=== PATIENT | male | born 1980 | race Caucasian/White ===

== ENCOUNTER 2017-09-14 11:52 | Emergency (ER) | payer SELFPAY ==
[2017-09-14 11:52] VITALS: BP 149/104; PULSE 114; RESP 16; TEMP 36.7; O2SAT 99; BMI 37.4
--- NOTE | 2017-09-14 12:24 | CT_ITS ---
STUDY: CT ABDOMEN AND PELVIS WITH CONTRAST REASON FOR EXAM: Male, 37 years old. Postprandial abdominal pain for one week. RADIATION DOSAGE (If Supplied By Facility): CTDIvol = ( 16.46 ) mGy, DLP = ( 1283.60 ) mGycm TECHNIQUE: Transaxial images were obtained from the dome of the diaphragm to the symphysis pubis without oral contrast. 100CC ml of Isovue 300 contrast was administered. Sagittal and coronal images were reconstructed. Individualized dose optimization techniques were used for this CT. COMPARISON: None. FINDINGS: The visualized lung bases are unremarkable. The visualized portions of the heart are within normal limits. There is decreased attenuation of the liver consistent with steatosis. Normal gallbladder and extrahepatic biliary system. Normal spleen. Normal pancreas. Normal bilateral adrenal glands. Normal right kidney. Normal left kidney. Normal visualized stomach. Normal small intestine. Normal colon. The appendix is visualized and appears normal. Normal abdominal aorta. Normal inferior vena cava. Normal retroperitoneum. Normal urinary bladder. Normal abdominal wall. Minimal anterior listhesis of L5 on S1 with spondylolysis of the pars interarticularis of the L5 vertebrae. CT/Abdomen/Pelvis W IV Cont ONLY IMPRESSION: Fatty infiltration of the liver. Electronically Signed: Jesus Joyner MD at 14:21 EDT Tel [phone], Service support ,
--- NOTE | 2017-09-14 12:24 | EKG12_ITS ---
Test Reason : AB PAIN Blood Pressure : / mmHG Vent. Rate : 102 BPM Atrial Rate : 102 BPM P-R Int : 150 ms QRS Dur : 088 ms QT Int : 346 ms P-R-T Axes : 037 -19 039 degrees QTc Int : 450 ms Sinus tachycardia Otherwise normal ECG Confirmed by CHASTITY SARAVIA, FRANKLYN ([id number]), editor city [place]UMONT ([id number]) on 09/18/2017 8:25:29 AM Referred By: [place] Confirmed By:FRANKLYN HAYWOOD MD
--- NOTE | 2017-09-14 12:32 | ED.DCSUM_ITS ---
- ER Visit Summary Date of Service: 09/14/17 Chief Complaint: Abdominal pain History of Present Illness: The patient is a 37 M with epigastric pain. Symptoms started about a week ago. They are intermittent, and can last for minutes to hours at a time. It seems to be worse with food. He has occasional mid back pain with this. He also reports lightheadedness with the pain. He has not passed out. Denies any vertigo. Denies any other symptoms. Denies any weakness or numbness in his legs. Denies any history of surgery. Physical Examination: Tachycardic but otherwise vitals unremarkable. Afebrile. Patient appears uncomfortable but not toxic or in distress. Abdomen is mildly tender in the epigastric region. No guarding or rebound. Normal bowel sounds. No masses. Heart and lungs unremarkable. Back unremarkable. Pulses strong and equal. Skin appears normal. Test Results: Laboratory studies pending. We will also check imaging. Emergency Department Course and Treatment: Patient declined pain meds. Will treat with a fluid bolus. Hgb 17.2. CMP normal. Lipase normal. Troponin normal. EKG showed sinus rhythm at a rate of 102. No sign of ischemia or infarction. CT abdomen showed a fatty liver but no other abnormalities. I am not sure what is causing the patient's pain. His workup is unremarkable. I believe he is appropriate for further outpatient follow-up. Will start him on antacid medication. He is also concerned about his lightheadedness. He has a history of vertigo, but he denies any vertigo this time. It seems like his dizziness is worse with his pain. I advised him to stay hydrated. Monitor for any new or worsening symptoms. He would like to follow-up as an outpatient for this. If he has trouble following up or has any new or worsening symptoms, he should return for reevaluation. Treatment Plan: As above Disposition: Discharged Impression: 1. Abdominal pain, epigastric 2. Lightheadedness This note was generated with [employer]cam dictation software. It may contain incorrect words, spelling, and punctuation that were not noted in review of the chart prior to signing ED Disposition - Plan for ED Patient: Chief Complaint: Abd Pain Referrals: Care Physician,No Primary [Primary Care Provider] -
[2017-09-14] MEDS: 0.9% Normal Saline 1,000 ML 1000 ML IV (12:36)
[2017-09-14 12:54] LABS: Absolute Lymphocyte Count 1.03 X10^3/ul (0.83-4.51); Absolute Neutrophil Count 4.1 X10^3/uL (2.0-7.7); Basophil# 0.03 X10^3/uL; Basophil% 0.5 % (0-1); Eosinophil# 0.15 X10^3/uL; Eosinophils% 2.6 % (0-5); Hematocrit 51.4 % (40-54); Hemoglobin 17.2 g/dl (13.0-16.5); Lymphocyte # 1.03 X10^3/ul (4.0); Lymphocyte % 17.7 % (19-41); Mean Corp Hgb Conc 33.5 g/gl (32-36); Mean Corpuscular Hgb 29.2 pg (27.0-32.0); Mean Corpuscular Volume 87.3 fL (80-94); Mean Platelet Vol. 9.8 fl (6.2-12.0); Monocyte# 0.48 X10^3/uL; Monocyte% 8.2 % (0-10); Neutrophil % 70.5 % (47-70); Platelet Count 246 K/mm3 (150-450); RBC Distribution Width CV 13.8 % (11.6-14.6); RBC Distribution Width SD 43.9 fl (35.1-43.9); Red Blood Count 5.89 M/mm3 (4.6-6.2); White Blood Count 5.8 K/mm3 (4.4-11.0)
[2017-09-14 12:55] LABS: POSITIVE COUNT NO; POSITIVE DIFFERENTIAL NO; POSITIVE MORPHOLOGY NO
[2017-09-14 13:16] LABS: AST(SGOT) 27 U/L (15-37); Alanine Aminotransfer ALT/SGPT 56 U/L (16-61); Albumin, Serum 4.2 g/dL (3.2-5.0); Alkaline Phosphatase 50 U/L (45-117); Anion Gap 9 (5-15); BUN 7 mg/dL (7-18); BUN/Creat Ratio 5.9 RATIO (10-20); Calcium,Total 9.4 mg/dL (8.5-10.1); Chloride 107 mmol/L (98-107); Creatinine, Serum 1.19 mg/dL (0.70-1.30); EST Glomerular Filtration Rate 72 mL/min (>60); Est Glom Filt Rate - Afr Amer 88 mL/min (>60); Estimated Creatinine Clearance 77.92 ml/min; Globulin 4.4 g/dL (2.2-4.2); Glucose 92 mg/dL (74-106); Lipase 114 U/L (73-393); Potassium 4.2 mmol/L (3.5-5.1); Protein, Total 8.6 g/dL (6.4-8.2); Sodium Level 143 mmol/L (136-145)
--- NOTE | 2017-09-14 15:03 | ED.DEP ---
ED Disposition - Plan for ED Patient: Chief Complaint: Abd Pain Instructions: ED Abdominal Pain Unkn Cause Male Prescriptions: Omeprazole [Prilosec] 20 mg PO DAILY #30 cap Referrals: Brenden Granda DO [STAFF PHYSICIAN] -
[2017-09-14 15:15] VITALS: BP 137/88; PULSE 81; RESP 16; O2SAT 98
== END 2017-09-14 15:26 | disposition home or self-care (01) ==
PROVIDERS: Emergency Provider Emergency Medicine
DX: R10.13 Epigastric pain (principal); R42 Dizziness and giddiness; M54.9 Dorsalgia, unspecified; R19.7 Diarrhea, unspecified; K76.0 Fatty (change of) liver, not elsewhere classified; Z72.0 Tobacco use
CPT/HCPCS: 74177; 80053; 83690; 84484; 85025; 93005; 96360; 99283; J7030; Q9967; A4216

== ENCOUNTER 2017-09-15 10:10 | Emergency (ER) | payer SELFPAY ==
--- NOTE | 2017-09-15 10:00 | EKG12_ITS ---
Test Reason : CP Blood Pressure : / mmHG Vent. Rate : 083 BPM Atrial Rate : 083 BPM P-R Int : 138 ms QRS Dur : 088 ms QT Int : 358 ms P-R-T Axes : 028 -26 048 degrees QTc Int : 420 ms Normal sinus rhythm with sinus arrhythmia Normal ECG Confirmed by CHASTITY SARAVIA, FRANKLYN ([id number]), acquisitions editor TITO DUMONT ([id number]) on 09/18/2017 8:44:00 AM Referred By: MEHDI Confirmed By:FRANKLYN HAYWOOD MD
[2017-09-15 10:11] VITALS: BP 167/101; PULSE 92; RESP 16; TEMP 36.8; O2SAT 99; BMI 37.4
[2017-09-15 10:17] VITALS: BP 141/99; PULSE 99; RESP 15; O2SAT 99
--- NOTE | 2017-09-15 10:30 | CT_ITS ---
STUDY: CTA CHEST REASON FOR EXAM: Male, 37 years old. Chest pain. RADIATION DOSAGE (If Supplied By Facility): CTDIvol = ( 15.06 ) mGy, DLP = ( 711.73 ) mGycm TECHNIQUE: The examination was performed with the intravenous administration of 100 ml of Isovue 370 contrast material. Post-processing of the angiographic images was performed, with multiplanar reformation and 3D reconstruction. Individualized dose optimization techniques were used for this CT. COMPARISON: None. FINDINGS: Cardiac monitoring leads are present. Normal enhancement of the main pulmonary artery and right and left pulmonary arteries. There is limited enhancement of the bilateral peripheral pulmonary arteries. There is no demonstrated pulmonary embolism. Normal thoracic aorta and visualized great vessels. There is no demonstrated aortic dissection. Normal heart and pericardium. There is no demonstrated mediastinal lymphadenopathy or mediastinal mass lesion. Normal hilar regions. Normal visualized trachea and bronchi. The lungs are well expanded. Normal pulmonary parenchyma. Normal pleura. Normal chest wall structures. Normal osseous structures. Normal visualized upper abdomen. CT/CTA Chest W/WO Contrast IMPRESSION: No CTA demonstrated pulmonary embolism or arterial dissection. Electronically Signed: Britta Roberts MD at 11:43 EDT , Service support ,
[2017-09-15 10:34] LABS: Absolute Lymphocyte Count 1.09 X10^3/ul (0.83-4.51); Absolute Neutrophil Count 4.1 X10^3/uL (2.0-7.7); Basophil# 0.03 X10^3/uL; Basophil% 0.5 % (0-1); Eosinophil# 0.15 X10^3/uL; Eosinophils% 2.5 % (0-5); Hematocrit 48.9 % (40-54); Hemoglobin 16.7 g/dl (13.0-16.5); Lymphocyte # 1.09 X10^3/ul (4.0); Lymphocyte % 18.2 % (19-41); Mean Corp Hgb Conc 34.2 g/gl (32-36); Mean Corpuscular Hgb 29.4 pg (27.0-32.0); Mean Corpuscular Volume 86.1 fL (80-94); Mean Platelet Vol. 9.6 fl (6.2-12.0); Monocyte# 0.56 X10^3/uL; Monocyte% 9.3 % (0-10); Neutrophil # 4.14 X10^3/uL (2.7-7.7); Neutrophil % 69.2 % (47-70); Platelet Count 290 K/mm3 (150-450); RBC Distribution Width CV 14.2 % (11.6-14.6); RBC Distribution Width SD 45.4 fl (35.1-43.9); Red Blood Count 5.68 M/mm3 (4.6-6.2)
--- NOTE | 2017-09-15 10:34 | ED.DCSUM_ITS ---
- ER Visit Summary Date of Service: 09/15/17 Chief Complaint: [] Epigastric chest pain 3 or 4 days History of Present Illness: The patient is a 37 M [] really no past history other than vertigo reports he is having epigastric pain into his chest for the last few days, he was seen yesterday he had extensive workup that was negative he reports he went home he woke had more discomfort when he could not eat and he was brought in for evaluation he does report the pain seems worse after he eats, he has no history of DE PE DVT no history of cardiovascular GI elements, his bowel bladder habits been normal he has had no fever no cough no exertional symptoms no known cardiovascular risk factors that he can recall Physical Examination: [] Large gentleman to the epigastric area and indicates that the pain is also in his chest his HEENT is unremarkable his neck is supple carotids have good upstroke the lungs are clear heart tones are distant the abdomen is soft very mild epigastric discomfort no rebound or guarding obesity, upper lower extremities are unremarkable without signs clubbing or edema the backs unremarkable neurologically he is moving all 4 extremities his pulses are symmetric Test Results: [] Emergency Department Course and Treatment: [] Absence CT abdomen were negative yesterday he is complaining of a pressure burning sensation he does not wish to have any for pain he will be treated with IV fluids Dilaudid, GI cocktail screening labs chest CT Treatment Plan: [] All of the patient studies as above were unremarkable including CT chest troponin EKG etc. see those reports she has been having symptoms constantly for 3 days on reevaluation he is feeling better after the GI cocktail we discussed the fact that the exact etiology is unclear we would be concerned about a possible occult life-threatening process and inpatient management but he declined that as he is feeling better, understands all that but again wants to go home he will stay on the acid he was prescribed yesterday bland diet Gaviscon and follow-up with his physicians in the next 2 days for further management of explained he may require GI consultation he understands and will follow-up further he will return for change in symptoms Disposition: [] Home stable Impression: [] epiGastric pain This note was generated with [employer] software. It may contain incorrect words, spelling, and punctuation that were not noted in review of the chart prior to signing ED Disposition - Plan for ED Patient: Chief Complaint: Abd Pain Referrals: Care Physician,No Primary [Primary Care Provider] -
[2017-09-15 10:35] LABS: POSITIVE COUNT NO; POSITIVE DIFFERENTIAL NO; POSITIVE MORPHOLOGY NO
[2017-09-15] MEDS: 0.9% Normal Saline 1,000 ML 125 ML IV (10:35)
[2017-09-15 10:52] LABS: AST(SGOT) 27 U/L (15-37); Alanine Aminotransfer ALT/SGPT 57 U/L (16-61); Albumin, Serum 4.2 g/dL (3.2-5.0); Alkaline Phosphatase 49 U/L (45-117); Anion Gap 8 (5-15); BUN 6 mg/dL (7-18); BUN/Creat Ratio 5.6 RATIO (10-20); Bilirubin, Direct 0.14 mg/dL (0.00-0.30); Chloride 103 mmol/L (98-107); Creatinine, Serum 1.08 mg/dL (0.70-1.30); EST Glomerular Filtration Rate 81 mL/min (>60); Est Glom Filt Rate - Afr Amer 98 mL/min (>60); Estimated Creatinine Clearance 85.86 ml/min; Globulin 4.3 g/dL (2.2-4.2); Glucose 102 mg/dL (74-106); Lipase 118 U/L (73-393); Potassium 3.7 mmol/L (3.5-5.1); Protein, Total 8.5 g/dL (6.4-8.2); Sodium Level 139 mmol/L (136-145)
[2017-09-15 10:57] LABS: Bacteria 0 SEEN /hpf (None Seen); Mucous, Urine 0 SEEN /hpf (<or=2+); Red Blood Cells-Urine 0 SEEN /hpf (0-5); Squamous Epithelial Cells - UA 0 SEEN /hpf (0-5); White Blood Cells 0 SEEN /hpf (0-5)
[2017-09-15 10:59] LABS: Color, Urine Yellow (Yellow); Glucose, Dipstick Normal (Normal); Ketone-Dipstick Negative (Negative); Leukocyte Esterase-Dipstick Negative /ul (Negative); Nitrite-Dipstick Negative (Negative); Occult Blood-Urine Negative /ul (Negative); Protein-Dipstick Negative (Negative); Urine Bilirubin Dipstick Negative (Negative); Urine Clarity Clear (Clear); Urine Urobilinogen Normal (Normal)
--- NOTE | 2017-09-15 12:18 | ED.DEP ---
ED Disposition - Plan for ED Patient: Chief Complaint: Abd Pain Instructions: ED Abdominal Pain Unkn Cause Referrals: Care Physician,No Primary [Primary Care Provider] - Additional Instructions: These return if her symptoms change or intensify, bland diet consider using Gaviscon antacid [id number]
[2017-09-15 12:49] VITALS: BP 131/98; PULSE 68; RESP 17
== END 2017-09-15 12:51 | disposition home or self-care (01) ==
LOC: ED 10:49
PROVIDERS: Emergency Provider Emergency Medicine
DX: R10.13 Epigastric pain (principal); R07.9 Chest pain, unspecified
CPT/HCPCS: 71275; 80048; 80076; 81001; 83690; 84484; 85025; 93005; 96361; 96374; 96375; 99284; J7030; J7040; Q9967; A4216

== ENCOUNTER 2018-08-16 08:39 | Emergency (ER) | payer SELFPAY ==
[2018-08-16 08:39] VITALS: BP 163/112; PULSE 92; RESP 16; TEMP 36.4; O2SAT 99; BMI 37.3
--- NOTE | 2018-08-16 09:06 | CT_ITS ---
STUDY: CT BRAIN WITHOUT CONTRAST REASON FOR EXAM: Male, 38 years old. Vertigo. RADIATION DOSAGE (If Supplied By Facility): CTDIvol = ( 44.99 ) mGy, DLP = ( 796.11 ) mGycm TECHNIQUE: Transaxial CT imaging of the brain was performed without administration of intravenous contrast material. Individualized dose optimization techniques were used for this CT. COMPARISON: Comparison is made with prior study dated August 10, 2012. FINDINGS: Normal soft tissue structures. Normal calvarium. Normal size ventricles and extra-axial spaces for the patient's age. Normal white matter tracts of the cerebral hemispheres. Normal basal ganglia and thalami. Normal brainstem. Normal cerebellum. There is no intracranial hemorrhage. There are no findings of an acute ischemic infarction. Atherosclerotic calcification of the cavernous portions of the internal carotid arteries. Partial opacification of the maxillary sinuses as well as the ethmoid sinuses and left sphenoid sinus. CT/Brain/Head without Contrast IMPRESSION: Sinusitis. Electronically Signed: Jesus Joyner, at 10:29 EST , Service support ,
[2018-08-16 09:40] LABS: Anion Gap 7 (5-15); BUN 8 mg/dL (7-18); BUN/Creat Ratio 7.8 RATIO (10-20); Calcium,Total 9.1 mg/dL (8.5-10.1); Chloride 105 mmol/L (98-107); Creatinine, Serum 1.02 mg/dL (0.70-1.30); EST Glomerular Filtration Rate 86 mL/min (>60); Est Glom Filt Rate - Afr Amer 104 mL/min (>60); Estimated Creatinine Clearance 86.87 ml/min; Glucose 110 mg/dL (74-106); Potassium 3.9 mmol/L (3.5-5.1); Sodium Level 140 mmol/L (136-145)
[2018-08-16 09:43] LABS: Absolute Lymphocyte Count 0.78 X10^3/ul (0.83-4.51); Absolute Neutrophil Count 2.5 X10^3/uL (2.0-7.7); Basophil# 0.03 X10^3/uL; Basophil% 0.8 % (0-1); Eosinophil# 0.13 X10^3/uL; Eosinophils% 3.3 % (0-5); Hematocrit 48.6 % (40-54); Hemoglobin 16.1 g/dl (13.0-16.5); Lymphocyte # 0.78 X10^3/ul (4.0); Lymphocyte % 19.8 % (19-41); Mean Corp Hgb Conc 33.1 g/gl (32-36); Mean Corpuscular Hgb 28.8 pg (27.0-32.0); Mean Corpuscular Volume 86.8 fL (80-94); Mean Platelet Vol. 9.8 fl (6.2-12.0); Monocyte# 0.51 X10^3/uL; Monocyte% 12.9 % (0-10); Neutrophil # 2.46 X10^3/uL (2.7-7.7); Neutrophil % 62.4 % (47-70); POSITIVE COUNT NO; POSITIVE DIFFERENTIAL NO; POSITIVE MORPHOLOGY NO; Platelet Count 248 K/mm3 (150-450); RBC Distribution Width CV 13.6 % (11.6-14.6); White Blood Count 3.9 K/mm3 (4.4-11.0)
[2018-08-16 09:44] LABS: Erythrocyte Sedimentation Rate 2 mm/hr (0-15)
[2018-08-16 11:00] VITALS: BP 145/95; PULSE 65; RESP 13; O2SAT 96
--- NOTE | 2018-08-16 11:08 | ED.DCSUM_ITS ---
History of Present Illness Chief Complaint: Dizziness Detail of Chief Complaint: Congestion, headache and trouble with balance Informant: Patient Onset: Weeks, Month(s) Timing: Intermittent, Waxes and wanes Quality: Read narrative Location: Read narrative Current Severity: Mild Maximum Severity: Moderate Worsened by: Change in position Relieved by: Nothing Associated Symptoms: Nausea, intermittent epigastric pain Narrative: Patient is a middle-aged male who presents with vertigo for the past 10-11 months. He denies change in vision, double vision or loss of vision. He does report headache. He denies trouble with speech or swallowing. He states she is dizzy . His definition of dizzy is lightheadedness as well as problems with balance. He equates it to feeling drunk. He denies fever, chills night sweats. He denies neck pain or neck stiffness. He denies respiratory or cardiac symptoms. Only GI symptom is nausea. He denies urologic symptoms. He denies myalgias arthralgias or joint swelling. He denies rash or skin lesions. Prior similar symptoms: Yes Recent Illness/Hospitalization: No Past Medical History - Allergies and Home Meds Allergies/Adverse Reactions: Allergies cephalexin [From Keflex] Adverse Reaction (Verified 09/15/17 10:10) Nausea levofloxacin [From Levaquin] Adverse Reaction (Verified 08/16/18 08:41) WEAKNESS morphine Adverse Reaction (Verified 09/15/17 10:10) Other halluciations Primary Care Physician: Care Physician,No Primary [Primary Care Provider] - Prior records reviewed: Yes Past Medical History: None Lives: Alone Smoking Status: Former smoker Alcohol: Rare Review of Systems General: Reports: - - He does report night sweats for the past year. Denies: Ch ills, Fever, Malaise, Sweats, Weight loss Eyes: Denies: Visual changes - bilaterally, Blurred vision - left, Diplopia ENT: Denies: Bilateral ear pain, Rhinorrhea, Sore throat Cardiovascular: Denies: Chest pain, Palpitations Respiratory: Denies: Dyspnea, Cough, Dyspnea on exertion Gastrointestinal: Reports: Abdominal pain - Intermittent transient epigastric with no alleviating, exacerbating or precipitating factors. Denies: Nausea, Vomiting, Diarrhea, Constipation, Melena, Hematochezia Genitourinary: Denies: Dysuria, Hematuria, Frequency Musculoskeletal: Denies: Myalgias, Arthralgias, Neck pain, Back pain, Swelling, Extremity Pain Skin: Denies: Rash, Wounds Neurological: Denies: Headache, Weakness, Numbness Endocrine: Denies: Polyuria, Polydipsia Hematologic: Denies: Easy bruising Allergy: Denies: Uticaria, Swelling of the mouth Physical Exam Vital Signs/Narrative: Vital Signs Temp Pulse Resp BP Pulse Ox 08/16/18 08:39 97.6 F L 92 16 163/112 H 99 Inital Vital Signs reviewed: Yes General: Well nourished, Well developed, Obese, No Acute Distress Head: Normocephalic, Atraumatic. Negative for: Tenderness Eyes: Perrl, EOMI. Negative for: Pale conjunctiva, Scleral icterus ENT: Moist mucous membranes, No rhinorrhea, TM's clear, Nasal congestion. Negative for: Sinus tenderness - Absolutely Neck: Supple, Nontender, No lymphadenopathy, No JVD, - - There is no meningeal findings and negative Kernig's and Brudzinski sign. Cardiovascular: Regular rate, Regular rhythm, No murmurs, Normal S1, Normal S2 Respiratory: No distress, CTA bilaterally, Chest nontender Abdomen: Soft, Nontender, Nondistended, Normal bowel sounds, No masses Rectal: Deferred Back: Nontender, Normal Inspection. Negative for: CVA tenderness Extremities: Nontender, No edema. Negative for: Calf Tenderness Skin: Normal color, No rash. Negative for: Cyanosis, Jaundice Neurological: Alert, Oriented x3, Cranial nerves II-XII grossly intact, Normal Strength, Normal Sensation, Normal DTR, Normal Gait, - - Romberg test with eyes open and eyes closed is normal. DTR upper and lower extremity are normal with no clonus or Babinski sign. Psychological: Normal affect, Normal Mood Diagnostic/Tx/Re-eval Impressions Brain CT 08/16/18 09:06 IMPRESSION: Sinusitis. Electronically Signed: Jesus Joyner, at 10:29 EST , Service support , 08/16/18 09:06 Brain/Head without Contrast [CT] Stat Laboratory Results 08/16/18 08/16/18 09:15 09:15 WBC 3.9 L RBC 5.60 Hgb 16.1 Hct 48.6 MCV 86.8 MCH 28.8 MCHC 33.1 RDW 13.6 RDW Differential 44.0 H Plt Count 248 MPV 9.8 Immature Gran % (Auto) 0.800 Neut % (Auto) 62.4 Lymph % (Auto) 19.8 [place] % (Auto) 12.9 H Eos % (Auto) 3.3 Baso % (Auto) 0.8 Absolute Neuts (auto) 2.5 Absolute Lymphs (auto) 0.78 L Total Counted Not Reportable ESR 2 Sodium 140 Potassium 3.9 Chloride 105 Carbon Dioxide 28.0 Anion Gap 7 BUN 8 Creatinine 1.02 Estim Creat Clear Calc 86.87 Est GFR (MDRD) Af Amer 104 Est GFR (MDRD) Non-Af 86 BUN/Creatinine Ratio 7.8 L Glucose 110 H Calcium 9.1 - Rhythm Strip Rhythm Strip: Sinus Rhythm Rate: 88 Ectopy: None - Medical Decision Making Since patient's Princeton-Hallpike maneuver was negative with symptoms that have been intermittent for [address] of the head was obtained. Furthermore the eye askew test and the HINT test are both negative. Because he reports night sweats ESR was obtained as a nonspecific inflammatory marker. If elevated will pursue workup for neoplastic etiology. Basic mental panel was obtained to assess electrolytes and renal function. CBC to evaluate for white count as well as H&H and differential. Patient may have atypical paroxysmal benign positional vertigo. This may represent an intracranial process. We will also evaluate for sinusitis since he has had nasal congestion for 3 weeks. ED Disposition - Plan for ED Patient: Disposition: Home or Assisted Living Diagnosis: Intermittent vertigo, Acute sinusitis with symptoms greater than 10 days, Acute non-recurrent sphenoidal sinusitis, Chronic sinusitis of both maxillary sinuses Instructions: ED Vertigo Unspecified, ED Sinusitis Abx Tx Prescriptions: Doxycycline Hyclate [Vibramycin] 100 mg PO BID #28 capsule Referrals: Care Physician,No Primary [Primary Care Provider] - Ruddy Adams MD [STAFF PHYSICIAN] - 1-2 Weeks Additional Instructions: Your prescription was electronically transmitted to your designated pharmacy of choice. Since you do not have a physician you were referred to Dr. Ruddy Adams.
[2018-08-16 11:43] VITALS: BP 145/95; PULSE 65; RESP 13; O2SAT 96
== END 2018-08-16 11:44 | disposition home or self-care (01) ==
PROVIDERS: Emergency Provider Emergency Medicine
DX: R42 Dizziness and giddiness (principal); J01.90 Acute sinusitis, unspecified; J32.0 Chronic maxillary sinusitis; J01.30 Acute sphenoidal sinusitis, unspecified; E66.9 Obesity, unspecified; Z87.891 Personal history of nicotine dependence
CPT/HCPCS: 70450; 80048; 85025; 85652; 99284; A4216

== ENCOUNTER 2018-08-20 10:17 | Emergency (ER) | payer SELFPAY ==
[2018-08-20 10:18] VITALS: BP 168/97; PULSE 74; RESP 16; TEMP 36.7; O2SAT 81; BMI 36.1
--- NOTE | 2018-08-20 10:32 | CT_ITS ---
STUDY: CT BRAIN WITH AND WITHOUT CONTRAST REASON FOR EXAM: Male, 38 years old. Dizziness and worsening headache. General illness.? Abscess. History of vertigo. RADIATION DOSAGE (If Supplied By Facility): CTDIvol = ( 44.99 ) mGy, DLP = ( 1547.23 ) mGycm TECHNIQUE: Transaxial CT imaging of the brain was performed pre and post contrast administration. The examination was performed with intravenous administration of Isovue 370 50mL IV. Coronal and sagittal reconstructions were performed. Individualized dose optimization techniques were used for this CT. COMPARISON: 08/16/2018. FINDINGS: Normal soft tissue structures. Normal calvarium. Normal size ventricles and extra-axial spaces for the patient's age. Normal white matter tracts of the cerebral hemispheres. Normal basal ganglia and thalami. Normal brainstem. Normal cerebellum. There is no intracranial hemorrhage. There are no findings of an acute ischemic infarction. Mucosal thickening in the left frontal sinus and left anterior ethmoid sinus. Air-fluid level in the dominant left sphenoid sinus. Mucosal thickening in both maxillary sinuses. CT/Brain/Head W/WO Contrast IMPRESSION: 1. Normal CT brain with and without contrast. 2. Acute sinusitis with air-fluid level in the left sphenoid sinus, mucosal thickening in the left frontal sinus, left anterior ethmoid sinus and both maxillary sinuses. These have increased when compared to 08/16/2018. Electronically Signed: Haim Herrera MD at 12:54 EDT , Service support ,
[2018-08-20 10:35] VITALS: BP 151/98; PULSE 82; RESP 12; TEMP 36.7; O2SAT 98
--- NOTE | 2018-08-20 10:39 | ED.DCSUM_ITS ---
- ER Visit Summary Date of Service: 08/20/18 Chief Complaint: Dizziness, nausea History of Present Illness: The patient is a 38 M presents to the emergency department dizziness and nausea. The patient symptoms have been going on for weeks. He was actually seen here 4 days ago. At that time, he underwent a CT of the brain. This does demonstrate sinusitis. He is been started on doxycycline. With this, he stopped taking his Zantac. He states his dizziness is no better. He states that if he stands for prolonged period of time, returns, he will get the sensation of motion. He is also been nauseated and has had decreased interest in eating. He denies any fevers but has had some sweats. He is on no other daily medications. He is otherwise been in his normal state of health. He does have a history of recurrent vertigo. Physical Examination: Vital signs reviewed General: Well-nourished, well-developed Head: Normocephalic, atraumatic Eyes: Pupils equal and reactive, extraocular muscles intact Neck, supple, no lymphadenopathy Heart: Regular rate and rhythm Respiratory: No distress, clear bilaterally Abdomen: Soft, nontender, nondistended, no peritoneal signs Back: Nontender Extremities: Nontender, no edema, no cords Skin: Normal color no rash Neuro: Alert and oriented, no focal or lateralizing deficits Test Results: [] Emergency Department Course and Treatment: I do feel the patient's symptoms are likely secondary to treatment failure from the doxycycline. I did want to rule out dangerous intracranial process. Patient underwent CT with IV contrast. This does show the sinusitis, but no other dangerous process. He was given fluids. His labs are unremarkable. On reevaluation is resting comfortably. I am going to change his antibiotic to Augmentin. I am going to add prednisone for his facial fullness. He is comfortable with this plan of care. I do feel that he is safe for outpatient therapy. Treatment Plan: [] Disposition: Discharge Impression: 1. Acute sinusitis This note was generated with [employer] dictation software. It may contain incorrect words, spelling, and punctuation that were not noted in review of the chart prior to signing ED Disposition - Plan for ED Patient: Instructions: ED Sinusitis Abx Tx Prescriptions: Amox/Clavulanate Tablet [Augmentin Tablet] 875 mg PO Q12H #20 tab Prednisone [Deltasone] 40 mg PO DAILY #10 tab Referrals: Care Physician,No Primary [Primary Care Provider] -
[2018-08-20] MEDS: 0.9% Normal Saline 1,000 ML 1000 ML IV (10:48)
[2018-08-20 11:03] LABS: Absolute Lymphocyte Count 0.95 X10^3/ul (0.83-4.51); Absolute Neutrophil Count 4.3 X10^3/uL (2.0-7.7); Basophil# 0.02 X10^3/uL; Basophil% 0.3 % (0-1); Eosinophil# 0.08 X10^3/uL; Eosinophils% 1.4 % (0-5); Hematocrit 50.1 % (40-54); Hemoglobin 16.6 g/dl (13.0-16.5); Lymphocyte # 0.95 X10^3/ul (4.0); Mean Corp Hgb Conc 33.1 g/gl (32-36); Mean Corpuscular Hgb 28.9 pg (27.0-32.0); Mean Corpuscular Volume 87.3 fL (80-94); Mean Platelet Vol. 9.6 fl (6.2-12.0); Monocyte# 0.51 X10^3/uL; Monocyte% 8.6 % (0-10); Neutrophil # 4.32 X10^3/uL (2.7-7.7); Platelet Count 233 K/mm3 (150-450); RBC Distribution Width CV 13.5 % (11.6-14.6); RBC Distribution Width SD 42.5 fl (35.1-43.9); Red Blood Count 5.74 M/mm3 (4.6-6.2); White Blood Count 5.9 K/mm3 (4.4-11.0)
[2018-08-20 11:06] LABS: POSITIVE COUNT NO; POSITIVE DIFFERENTIAL NO; POSITIVE MORPHOLOGY NO
[2018-08-20 11:21] LABS: AST(SGOT) 19 U/L (15-37); Alanine Aminotransfer ALT/SGPT 39 U/L (16-61); Albumin, Serum 4.3 g/dL (3.2-5.0); Alkaline Phosphatase 53 U/L (45-117); Anion Gap 10 (5-15); BUN 9 mg/dL (7-18); BUN/Creat Ratio 8.7 RATIO (10-20); Calcium,Total 9.4 mg/dL (8.5-10.1); Chloride 104 mmol/L (98-107); Creatinine, Serum 1.03 mg/dL (0.70-1.30); EST Glomerular Filtration Rate 85 mL/min (>60); Est Glom Filt Rate - Afr Amer 103 mL/min (>60); Estimated Creatinine Clearance 89.13 ml/min; Globulin 4.1 g/dL (2.2-4.2); Glucose 96 mg/dL (74-106); Potassium 3.8 mmol/L (3.5-5.1); Protein, Total 8.4 g/dL (6.4-8.2); Sodium Level 141 mmol/L (136-145)
[2018-08-20 12:04] VITALS: BP 144/81; PULSE 68; RESP 11; TEMP 36.7; O2SAT 97
[2018-08-20 13:00] VITALS: BP 130/89; PULSE 65; RESP 14; TEMP 36.7; O2SAT 98
[2018-08-20] MEDS: MethylPREDNISolone 125 MG/2 ML Vial IV (13:11)
[2018-08-20 13:13] VITALS: BP 141/87; PULSE 77; RESP 15; O2SAT 98
== END 2018-08-20 13:23 | disposition home or self-care (01) ==
PROVIDERS: Emergency Provider Emergency Medicine
DX: J01.90 Acute sinusitis, unspecified (principal); R42 Dizziness and giddiness
CPT/HCPCS: 70470; 80053; 85025; 96361; 96374; 96375; 99284; J7030; Q9967; A4216; J2405

== ENCOUNTER 2018-08-30 11:14 | Emergency (ER) | payer SELFPAY ==
[2018-08-30 11:15] VITALS: BP 143/94; PULSE 98; RESP 18; TEMP 36.8; O2SAT 99; BMI 35.6
--- NOTE | 2018-08-30 11:41 | CT_ITS ---
STUDY: CT BRAIN WITHOUT CONTRAST REASON FOR EXAM: Male, 38 years old. Dizziness, headache. Recent sinus infection. RADIATION DOSAGE (If Supplied By Facility): CTDIvol = ( 44.99 ) mGy, DLP = ( 745.49 ) mGycm TECHNIQUE: Transaxial CT imaging of the brain was performed without administration of intravenous contrast material. Individualized dose optimization techniques were used for this CT. COMPARISON: Noncontrast CT brain August 20, 2018. FINDINGS: Normal soft tissue structures. Normal calvarium. Normal size ventricles and extra-axial spaces for the patient's age. Normal white matter tracts of the cerebral hemispheres. Normal basal ganglia and thalami. Normal brainstem. Normal cerebellum. There is no intracranial hemorrhage. There are no findings of an acute ischemic infarction. The periosteal thickening in the visualized maxillary antra is improved, and the left frontal sinus and anterior left ethmoid air cell are now clear. Partial opacification of the remaining left ethmoid sinus and mucoperiosteal thickening in the right maxillary antra and upper right nasal passage unchanged. There is also stable moderate mucoperiosteal thickening in the posterior left sphenoid sinus. CT/Brain/Head without Contrast IMPRESSION: 1. Normal unenhanced CT scan of the brain. 2. Mildly improved paranasal sinusitis, as described. Electronically Signed: Srikanth Callejas MD at 12:13 EDT , Service support ,
--- NOTE | 2018-08-30 11:48 | NURSING ---
CALLED [facility], DR HILL TALKED TO URSULA, TRANSFER LINE
--- NOTE | 2018-08-30 13:15 | ED.VISSUMM ---
- ER Visit Summary Date of Service: 08/30/18 Chief Complaint: Sinusitis, dizziness History of Present Illness: The patient is a 38 M with vertigo-like symptoms that been waxing and waning over the past 1 month. He was initially seen in the ER on August 16 and was started on doxycycline for sinusitis noted on CAT scan. He returned to the ER on the for the same. He had continued sinusitis with no improvement on CT. Antibiotics were switched to Augmentin at that time. He was also given a short course of prednisone for facial pressure. Patient states he still not significantly improved. He will admit that he will feel better for part of the day but then worsens again. Symptoms are not always worsened with head rotation. He denies having significant facial pressure currently. He has not had rhinorrhea and congestion. Patient does report history of vertigo a couple years ago. He took his last dose of Augmentin this morning and did take a single dose of meclizine without improvement. Physical Examination: Vital signs grossly unremarkable. Patient sitting upright in bed no acute distress. Head neck examination unremarkable. Heart is regular rate and rhythm. Lungs sounds clear. Abdomen is soft nontender. Neuro exam reveals no focal deficits. Test Results: CT head shows normal brain. Mildly improved paranasal sinusitis is noted. Emergency Department Course and Treatment: Family states that they have been trying to call a local primary care physician to establish care so they can be referred to ENT. I spoke with Dr. Arrieta, on-call for ENT. He questions possibility of vestibular migraine causing the patient's symptoms. He will be given a dose of Toradol, Reglan, Benadryl, and IV fluids here. Patient will be discharged to continue his meclizine and follow-up with Dr. Arrieta as an outpatient. Treatment Plan: [] Disposition: Discharge Impression: 1. Vertigo 2. Improving sinusitis This note was generated with [employer] dictation software. It may contain incorrect words, spelling, and punctuation that were not noted in review of the chart prior to signing ED Disposition - Plan for ED Patient: Referrals: Care Physician,No Primary [Primary Care Provider] -
--- NOTE | 2018-08-30 13:18 | ED.DCSUM_ITS ---
- ER Visit Summary Date of Service: 08/30/18 Chief Complaint: Sinusitis, dizziness History of Present Illness: The patient is a 38 M with vertigo-like symptoms that been waxing and waning over the past 1 month. He was initially seen in the ER on August 16 and was started on doxycycline for sinusitis noted on CAT scan. He returned to the ER on the for the same. He had continued sinusitis with no improvement on CT. Antibiotics were switched to Augmentin at that time. He was also given a short course of prednisone for facial pressure. Patient states he still not significantly improved. He will admit that he will feel better for part of the day but then worsens again. Symptoms are not always worsened with head rotation. He denies having significant facial pressure currently. He has not had rhinorrhea and congestion. Patient does report history of vertigo a couple years ago. He took his last dose of Augmentin this morning and did take a single dose of meclizine without improvement. Physical Examination: Vital signs grossly unremarkable. Patient sitting upright in bed no acute distress. Head neck examination unremarkable. Heart is regular rate and rhythm. Lungs sounds clear. Abdomen is soft nontender. Neuro exam reveals no focal deficits. Test Results: CT head shows normal brain. Mildly improved paranasal sinusitis is noted. Emergency Department Course and Treatment: Family states that they have been trying to call a local primary care physician to establish care so they can be referred to ENT. I spoke with Dr. Arrieta, on-call for ENT. He questions possibility of vestibular migraine causing the patient's symptoms. He will be given a dose of Toradol, Reglan, Benadryl, and IV fluids here. Patient will be discharged to continue his meclizine and follow-up with Dr. Arrieta as an ou tpatient. Treatment Plan: [] Disposition: Discharge Impression: 1. Vertigo 2. Improving sinusitis This note was generated with [employer] dictation software. It may contain incorrect words, spelling, and punctuation that were not noted in review of the chart prior to signing ED Disposition - Plan for ED Patient: Referrals: Care Physician,No Primary [Primary Care Provider] -
--- NOTE | 2018-08-30 13:18 | ED.DEP ---
ED Disposition - Plan for ED Patient: Disposition: Home or Assisted Living Instructions: ED Vertigo Unspecified Referrals: Ruddy Arrieta MD [STAFF PHYSICIAN] - As soon as possible
[2018-08-30] MEDS: 0.9% Normal Saline 1,000 ML 999 ML IV (13:19)
--- NOTE | 2018-08-30 13:20 | ED.DEP ---
ED Disposition - Plan for ED Patient: Disposition: Home or Assisted Living Instructions: ED Vertigo Unspecified Prescriptions: Meclizine HCl [Motion Sickness] 25 mg PO Q8H PRN PRN #20 tablet PRN Reason: Vertigo Referrals: Ruddy Arrieta MD [STAFF PHYSICIAN] - As soon as possible
[2018-08-30] MEDS: Ketorolac 30 MG/ML Syringe IV (13:21)
[2018-08-30] MEDS: DiphenhydrAMINE 50 MG/ML Syringe 25 MG IV (13:21)
[2018-08-30] MEDS: Metoclopramide 10 MG/2 ML Vial IV (13:22)
[2018-08-30 14:09] VITALS: BP 131/87; PULSE 74; PULSE 87; RESP 18; RESP 74; O2SAT 100
== END 2018-08-30 14:10 | disposition home or self-care (01) ==
PROVIDERS: Emergency Provider Emergency Medicine
DX: R42 Dizziness and giddiness (principal); J32.9 Chronic sinusitis, unspecified; K21.9 Gastro-esophageal reflux disease without esophagitis; Z72.0 Tobacco use
CPT/HCPCS: 70450; 96361; 96374; 96375; 99285; J7030; A4216